=== PATIENT | male | born 1935 | race Caucasian/White ===

== ENCOUNTER 2017-10-05 09:44 | Inpatient (IN) | payer MEDICARE, OTHER ==
[2017-10-03 15:18] LABS: BASOPHILS % (AUTO) 0.4 % (0-1); EOSINOPHILS # (AUTO) 1.1 X10'3 (0-0.9); EOSINOPHILS % (AUTO) 14.2 % (0-6); LYMPHOCYTES # (AUTO) 1.5 X10'3 (1.1-4.8); LYMPHOCYTES % (AUTO) 19.4 % (21-51); MEAN CORPUSCULAR HEMOGLOBIN 30.7 PG (27.0-31.0); MEAN CORPUSCULAR HGB CONC 33.9 % (33.0-36.5); MEAN CORPUSCULAR VOLUME 90.7 FL (78-98); MEAN PLATELET VOLUME 8.7 FL (7.4-10.4); MONOCYTES # (AUTO) 0.6 X10'3 (0-0.9); MONOCYTES % (AUTO) 7.1 % (2-12); NEUTROPHILS # (AUTO) 4.7 X10'3 (1.8-7.7); NEUTROPHILS % (AUTO) 58.9 % (42-75); PRE OP HEMATOCRIT 37.6 % (42.0-52.0); PRE OP HEMOGLOBIN 12.8 g/dL (14.0-17.9); PRE OP PLATELET COUNT 202 X10'3 (140-440); RED BLOOD COUNT 4.15 X10'6 (4.70-6.10); RED CELL DISTRIBUTION WIDTH 14.7 % (11.5-14.5)
[2017-10-03 15:25] LABS: CLARITY,URINE CLEAR (Clear); COLOR,URINE YELLOW (Yellow); GLUCOSE, URINE NEGATIVE (Neg); KETONES,URINE NEGATIVE (Neg); LEUKOCYTE ESTERASE ,URINE NEGATIVE (Neg); NITRITES, URINE NEGATIVE (Neg); OCCULT BLOOD,URINE NEGATIVE (Neg); PH,URINE 5.5 (4.8-8.0); PROTEIN,URINE NEGATIVE (Neg); UROBILINOGEN,URINE 0.2 E.U/dL (0.2-1.0)
[2017-10-03 15:26] LABS: HEMOGLOBIN A1C 6.8 % (4.5-6.2)
[2017-10-03 15:31] LABS: UA COLLECTION TYPE CLN CATCH MIDSTREAM
[2017-10-03 15:32] LABS: ALBUMIN 3.5 G/DL (3.4-5.0); ALBUMIN/GLOBULIN RATIO 1.1 (1.1-1.5); ALKALINE PHOSPHATASE 75 IU/L (46-116); BLOOD UREA NITROGEN 21 MG/DL (7-18); BUN/CREATININE RATIO 18.6 (5.4-32.0); CALCIUM 8.9 MG/DL (8.5-10.1); CHLORIDE 105 MMOL/L (99-107); CREATININE 1.13 MG/DL (0.60-1.10); PRE OP ALT 26 U/L (30-65); PRE OP ANION GAP 8 (8-16); PRE OP AST 13 U/L (10-37); PRE OP BILIRUB, TOTAL 0.6 MG/DL (0.0-1.0); PRE OP GLUCOSE 119 MG/DL (70-104); PRE OP POTASSIUM 4.1 MMOL/L (3.4-5.1); PRE OP SODIUM 140 MMOL/L (135-145); TOTAL CARBON DIOXIDE 27.4 MMOL/L (24-32); TOTAL PROTEIN 6.8 G/DL (6.4-8.2); eGFR 62 ML/MIN
[~2017-10-05] VITALS: Ht 180.3 cm; Wt 88.9 kg
[2017-10-05] VITALS (16 sets, daily range): BP systolic 109–167; BP diastolic 58–71
[~2017-10-05 09:44] MED LIST: CARI250T PO; Cefazolin 2GM/50ML dext iso,osmotic IVPB IV ONE; DOXE10CA2 PO; albuterol 2.5 MG/3 ML nebule NEB ONE; ceFAZolin 1000mg inj ONE; famotidine 20mg tablet PO ONE; heparin 10,000 units/1 ML INJ ONE
[2017-10-05] MEDS: ringers solution, lacted 1,000 ML IV SCH ×2 (10:53→16:59)
[2017-10-05] MEDS ORDERED: LISI-604 PO (10:58)
[2017-10-05] MEDS ORDERED: LIDOcaine 1% (10mg/ml) 2ml vial ONE (10:58)
[2017-10-05] MEDS ORDERED: IPRA4AER IH (11:00)
[2017-10-05] MEDS ORDERED: fentaNYL/PF 50MCG/1 ML 2ML syringe ONE (12:07)
[2017-10-05] MEDS ORDERED: MIDAZolam 5mg/5ml vial ONE ×2 (12:08→14:06)
[2017-10-05] MEDS ORDERED: BUPIVAcaine/PF 7.5mg/ml (0.75%) 10ml vial ONE (12:09)
[2017-10-05] MEDS ORDERED: propofol inj 20 ML IV ONE (12:30)
[2017-10-05] MEDS ORDERED: ondansetron/PF 4mg/2ml inj IV PRN ×2 (12:40→13:15)
[2017-10-05] MEDS ORDERED: HYDROcodone/acetaminophen 5mg/325mg tablet PO PRN (12:40)
[2017-10-05] MEDS ORDERED: naloxone 0.4 mg/ml inj IV PRN (12:40)
[2017-10-05] MEDS ORDERED: CADD PCA waste documentation MC PRN (12:40)
[2017-10-05] MEDS ORDERED: enalaprilat dihydrate 2.5mg/2ml vial IV PRN (13:15)
[2017-10-05] MEDS ORDERED: proCHLORperazine 10 MG/2 ml inj IV PRN (13:15)
[2017-10-05] MEDS ORDERED: meperidine/PF 25mg/ml syringe IV PRN ×3 (13:15)
[2017-10-05] MEDS ORDERED: labetalol 20mg/4ml (5mg/ml) syringe IV PRN (13:15)
[2017-10-05] MEDS ORDERED: morphine 4 MG/ML inj SYRINge IV PRN ×2 (13:15)
[2017-10-05] MEDS ORDERED: ringers solution, lacted 1,000 ML IV SCH (13:15)
[2017-10-05] MEDS ORDERED: iohexol 300 MG/1 ML 50ml polymer ONE ×2 (13:26→14:23)
[2017-10-05] MEDS: Potassium Cl inj 20 MEQ in ringers solution, lacted 1,000 ML IV SCH ×2 (15:00→20:32)
[2017-10-05] MEDS: HYDROmorphone/NS 1 mg/ml CADD 50 ML IV SCH ×6 (15:00→23:00)
[2017-10-05] MEDS ORDERED: ondansetron/PF 4mg/2ml inj ONE (15:01)
[2017-10-05] MEDS ORDERED: dexamethasone sod phosphate 10mg/ml inj ONE (15:01)
[2017-10-05] MEDS ORDERED: neostigmine methylsulfate 1 MG/ML 10ml vial ONE (15:01)
[2017-10-05] MEDS ORDERED: glycopyrrolate 0.2mg/ml inj ONE (15:01)
[2017-10-05] MEDS ORDERED: sevoflurane 250ml liquid IH ONE (15:01)
[2017-10-05] MEDS: enoxaparin 30mg/0.3ml syringe SQ SCH (20:31)
[2017-10-05] MEDS ORDERED: cyclobenzaprine 10mg tablet PO PRN (20:35)
[2017-10-05] MEDS ORDERED: doxepin 10mg capsule PO SCH (21:00)
[2017-10-05] MEDS: ipratropium/albuterol 3ml nebule IH SCH (21:00)
[2017-10-06] VITALS: BP 129/52
[2017-10-06] MEDS: HYDROmorphone/NS 1 mg/ml CADD 50 ML IV SCH ×7 (01:00→13:00)
[2017-10-06 04:41] LABS: BASOPHILS % (AUTO) 0.3 % (0-1); EOSINOPHILS # (AUTO) 0.9 X10'3 (0-0.9); EOSINOPHILS % (AUTO) 12.4 % (0-6); HEMOGLOBIN 10.9 g/dl (14.0-17.9); LYMPHOCYTES # (AUTO) 0.9 X10'3 (1.1-4.8); LYMPHOCYTES % (AUTO) 12.4 % (21-51); MEAN CORPUSCULAR VOLUME 91.2 FL (78-98); MEAN PLATELET VOLUME 8.4 FL (7.4-10.4); MONOCYTES # (AUTO) 0.5 X10'3 (0-0.9); MONOCYTES % (AUTO) 6.7 % (2-12); NEUTROPHILS # (AUTO) 5.2 X10'3 (1.8-7.7); NEUTROPHILS % (AUTO) 68.2 % (42-75); PLATELET COUNT 174 X10'3 (140-440); RED BLOOD COUNT 3.62 X10'6 (4.70-6.10); RED CELL DISTRIBUTION WIDTH 14.5 % (11.5-14.5); WHITE BLOOD COUNT 7.6 X10'3 (4.5-11.0)
[2017-10-06 05:03] LABS: ALBUMIN 3.1 G/DL (3.4-5.0); ANION GAP 4 (8-16); BLOOD UREA NITROGEN 10 MG/DL (7-18); BUN/CREATININE RATIO 12.3 (5.4-32.0); CALCIUM 8.5 MG/DL (8.5-10.1); CHLORIDE 106 MMOL/L (99-107); CREATININE 0.81 MG/DL (0.60-1.10); GLUCOSE 115 MG/DL (70-104); POTASSIUM 4.3 MMOL/L (3.5-5.1); SODIUM 139 MMOL/L (135-145); TOTAL CARBON DIOXIDE 29.5 MMOL/L (24-32); eGFR > 90 ML/MIN
[2017-10-06] MEDS: Potassium Cl inj 20 MEQ in ringers solution, lacted 1,000 ML IV SCH (05:06)
[2017-10-06] MEDS: enoxaparin 30mg/0.3ml syringe SQ SCH (07:47)
[2017-10-06] MEDS ORDERED: lisinopril 5mg tablet PO SCH (08:00)
[2017-10-06] MEDS: ipratropium/albuterol 3ml nebule IH SCH (08:38)
[2017-10-06 11:00] VITALS: BP 115/67
== END 2017-10-06 14:36 | disposition home or self-care (01) | DRG 253 ==
LOC: PAS 09:44 → SUR 3N 12:40 → EDSTATUS 13:15
PROVIDERS: ADMIT Surgery; ATTEND Surgery
PROC: 047H3DZ Dilation of Right External Iliac Artery with Intraluminal Device, Percutaneous Approach (ICD-10-PCS; 2017-10-05)
PROC: 04CK0ZZ Extirpation of Matter from Right Femoral Artery, Open Approach (ICD-10-PCS; principal; 2017-10-05 11:53)
DX: I74.3 Embolism and thrombosis of arteries of the lower extremities (principal); I74.5 Embolism and thrombosis of iliac artery; G89.29 Other chronic pain; E11.9 Type 2 diabetes mellitus without complications; I10 Essential (primary) hypertension; Z86.73 Personal history of transient ischemic attack (TIA), and cerebral infarction without residual deficits
CPT/HCPCS: 36415; 37221; 80048; 80053; 81003; 82948; 83036; 85025; 86885; 86900; 86901; 86920; 87070; 94640; 94760; A6258; A7000; C1725; C1757; C1758; C1876; J0690; J1100; J1170; J1644; J1650; J2250; J2405; J2704; J2710; J3010; J3480; J3490; J7030; J7120; Q9967

== ENCOUNTER 2018-02-20 06:48 | Inpatient (IN) | payer MEDICARE, OTHER ==
[~2018-02-20] VITALS: Ht 180.3 cm; Wt 86.4 kg
[~2018-02-20 06:48] MED LIST changes: -Cefazolin 2GM/50ML dext iso,osmotic IVPB IV ONE; +IPRA4AER IH; +LISI-604 PO; -albuterol 2.5 MG/3 ML nebule NEB ONE; -ceFAZolin 1000mg inj ONE; -famotidine 20mg tablet PO ONE; -heparin 10,000 units/1 ML INJ ONE
[2018-02-20] MEDS ORDERED: adenosine 3mg/ml 2ml vial IV ONE ×2 (07:00→07:40)
[2018-02-20] MEDS ORDERED: aspirin 81mg tab.chew PO ONE (07:00)
[2018-02-20 07:16] LABS: BASOPHILS % (AUTO) 0.1 % (0-1); EOSINOPHILS # (AUTO) 0.1 X10'3 (0-0.9); EOSINOPHILS % (AUTO) 0.4 % (0-6); HEMATOCRIT 40.3 % (42.0-52.0); HEMOGLOBIN 13.2 g/dl (14.0-17.9); LYMPHOCYTES # (AUTO) 1.6 X10'3 (1.1-4.8); LYMPHOCYTES % (AUTO) 8.7 % (21-51); MEAN CORPUSCULAR HEMOGLOBIN 30.2 PG (27.0-31.0); MEAN CORPUSCULAR HGB CONC 32.8 % (33.0-36.5); MEAN CORPUSCULAR VOLUME 91.9 FL (78-98); MEAN PLATELET VOLUME 8.5 FL (7.4-10.4); MONOCYTES # (AUTO) 0.5 X10'3 (0-0.9); MONOCYTES % (AUTO) 2.8 % (2-12); NEUTROPHILS # (AUTO) 16.3 X10'3 (1.8-7.7); PLATELET COUNT 198 X10'3 (140-440); RED BLOOD COUNT 4.38 X10'6 (4.70-6.10); RED CELL DISTRIBUTION WIDTH 15.6 % (11.5-14.5); WHITE BLOOD COUNT 18.5 X10'3 (4.5-11.0)
[2018-02-20 07:31] LABS: ALANINE AMINOTRANSFERASE 29 U/L (12-78); ALBUMIN 2.9 G/DL (3.4-5.0); ALBUMIN/GLOBULIN RATIO 0.7 (1.1-1.5); ALKALINE PHOSPHATASE 55 IU/L (46-116); ANION GAP 15 (8-16); ASPARTATE AMINO TRANSFERASE 25 U/L (10-37); BILIRUBIN,TOTAL 2.1 MG/DL (0.1-1.0); BLOOD UREA NITROGEN 40 MG/DL (7-18); BUN/CREATININE RATIO 15.7 (5.4-32.0); CALCIUM 8.9 MG/DL (8.5-10.1); CHLORIDE 102 MMOL/L (99-107); CREATININE 2.54 MG/DL (0.60-1.10); GLUCOSE 162 MG/DL (70-104); POTASSIUM 4.7 MMOL/L (3.5-5.1); SODIUM 139 MMOL/L (135-145); TOTAL CARBON DIOXIDE 22.4 MMOL/L (24-32); TOTAL PROTEIN 6.9 G/DL (6.4-8.2); eGFR 24 ML/MIN
[2018-02-20 07:36] LABS: INR 1.3 INR; PARTIAL THROMBOPLASTIN TIME 34 SECONDS (22-32); PROTHROMBIN TIME 12.6 SECONDS (9.0-12.0)
[2018-02-20 07:38] LABS: MAGNESIUM 1.6 MG/DL (1.5-2.4)
[2018-02-20] MEDS ORDERED: levoFLOXACIN-Levaquin 750MG/D5 150 ML IV ONE (07:45)
[2018-02-20 07:53] LABS: TOTAL CELLS COUNTED 100
[2018-02-20 07:54] LABS: ANISOCYTOSIS 1+; PLATELET ESTIMATE NORMAL
[2018-02-20] MEDS ORDERED: enoxaparin 100mg/ml syringe SUBCUT ONE (07:55)
[2018-02-20 08:05] LABS: ABG HCO3 22.1 mmol/L (22.0-26.0); ABG OXYGEN SATURATION 88.6 % (95-98); ABG PCO2 (T) 35.6 mmHg (35.0-48.0); ABG PO2 (T) 53.1 mmHg (83-108); ALLEN'S TEST Positive; FCOHb 1.1 % (0.5-1.5); FLOW 5 L/min; FO2Hb 87.6 % (94-100); TOTAL HEMOGLOBIN 13.3 G/dl (14.0-18.0)
[2018-02-20] MEDS ORDERED: normal saline 1000ML IV soln IVB ONE (08:10)
[2018-02-20] MEDS ORDERED: morphine 2 MG/ML inj. syringe IV PRN ×2 (08:25)
[2018-02-20] MEDS ORDERED: ondansetron/PF 4mg/2ml inj IV PRN (08:25)
[2018-02-20] MEDS ORDERED: magnesium hydroxide 30ml (MOM) UD suspension PO PRN (08:25)
[2018-02-20] MEDS ORDERED: HYDROcodone/acetaminophen 5mg/325mg tablet PO PRN (08:25)
[2018-02-20] MEDS ORDERED: nitroGLYCERIN 0.4mg SUBLingual tab SL PRN (08:25)
[2018-02-20] MEDS ORDERED: mag hydrox/Alum hydrox/simeth 30ml oral suspension PO PRN (08:25)
[2018-02-20] MEDS ORDERED: acetaminophen 325mg tablet PO PRN ×2 (08:25)
[2018-02-20] MEDS ORDERED: HYDROcodone/acetaminophen 10/325mg tab PO PRN (08:25)
[2018-02-20] MEDS ORDERED: ATOR20TA66 PO (10:02)
[2018-02-20] MEDS ORDERED: CARI350T27 PO (13:55)
[2018-02-20 13:56] VITALS: BP 137/59
[2018-02-20] MEDS ORDERED: CefTRIAXone/D5W-Rocephin 1gm 50 ML IV ONE (14:30)
[2018-02-20] MEDS: ipratropium/albuterol 3ml nebule IH SCH ×2 (14:33→20:41)
[2018-02-20 15:00] VITALS: BP 112/54
[2018-02-20] MEDS ORDERED: azithromycin/NS 500mg/250ml 250 ML IV ONE (15:00)
[2018-02-20] MEDS ORDERED: cyclobenzaprine 10mg tablet PO PRN (16:00)
[2018-02-20] MEDS: metoprolol succinate 25mg (24-HOUR) SR. Tablet PO SCH (16:54)
[2018-02-20 19:00] VITALS: BP 118/54
[2018-02-20] MEDS: doxepin 10mg capsule PO SCH (20:29)
[2018-02-20 23:00] VITALS: BP 106/58
[2018-02-21 03:00] VITALS: BP 99/51
[2018-02-21 04:57] LABS: BASOPHILS % (AUTO) 0.1 % (0-1); EOSINOPHILS % (AUTO) 0.1 % (0-6); HEMATOCRIT 29.7 % (42.0-52.0); HEMOGLOBIN 9.8 g/dl (14.0-17.9); LYMPHOCYTES # (AUTO) 0.8 X10'3 (1.1-4.8); LYMPHOCYTES % (AUTO) 7.5 % (21-51); MEAN CORPUSCULAR HEMOGLOBIN 30.1 PG (27.0-31.0); MEAN CORPUSCULAR HGB CONC 32.9 % (33.0-36.5); MEAN CORPUSCULAR VOLUME 91.3 FL (78-98); MEAN PLATELET VOLUME 8.5 FL (7.4-10.4); MONOCYTES # (AUTO) 0.3 X10'3 (0-0.9); MONOCYTES % (AUTO) 2.7 % (2-12); NEUTROPHILS # (AUTO) 9.1 X10'3 (1.8-7.7); NEUTROPHILS % (AUTO) 89.6 % (42-75); PLATELET COUNT 151 X10'3 (140-440); RED BLOOD COUNT 3.25 X10'6 (4.70-6.10); RED CELL DISTRIBUTION WIDTH 15.6 % (11.5-14.5); WHITE BLOOD COUNT 10.2 X10'3 (4.5-11.0)
[2018-02-21 05:20] LABS: ALBUMIN 2.1 G/DL (3.4-5.0); ANION GAP 10 (8-16); BLOOD UREA NITROGEN 53 MG/DL (7-18); CALCIUM 8.3 MG/DL (8.5-10.1); CHLORIDE 101 MMOL/L (99-107); CHOL/HDL RATIO 4.6 (0.00-4.99); CHOLESTEROL 106 MG/DL (0-200); CREATININE 1.83 MG/DL (0.60-1.10); GLUCOSE 138 MG/DL (70-104); HDL CHOLESTEROL 23 MG/DL (35-60); LDL CHOLESTEROL 53 MG/DL (50-100); SODIUM 135 MMOL/L (135-145); TOTAL CARBON DIOXIDE 24.3 MMOL/L (24-32); TRIGLYCERIDES 114 MG/DL (20-135); eGFR 36 ML/MIN
[2018-02-21 06:00] VITALS: BP 99/53
[2018-02-21 07:16] LABS: ANISOCYTOSIS 1+; PLATELET ESTIMATE NORMAL; TOTAL CELLS COUNTED 100
[2018-02-21] MEDS: metoprolol succinate 25mg (24-HOUR) SR. Tablet PO SCH (07:26)
[2018-02-21] MEDS: aspirin 81mg tablet.DR PO SCH (07:27)
[2018-02-21] MEDS: atorvastatin 20mg tablet PO SCH (07:27)
[2018-02-21] MEDS: enoxaparin 40mg/0.4ml syringe SUBCUT SCH (07:27)
[2018-02-21] MEDS: CefTRIAXone/D5W-Rocephin 1gm 50 ML IV SCH (07:27)
[2018-02-21] MEDS: azithromycin/NS 500mg/250ml 250 ML IV SCH (08:33)
[2018-02-21] MEDS: ipratropium/albuterol 3ml nebule IH SCH ×2 (08:42→20:41)
[2018-02-21 11:00] VITALS: BP 96/57
[2018-02-21 15:00] VITALS: BP 111/58
[2018-02-21] MEDS ORDERED: normal saline 1000ml 1,000 ML IV SCH (15:30)
[2018-02-21 19:00] VITALS: BP 104/59
[2018-02-21] MEDS: lactobacillus rhamnosus 10,000 MMU CELLS/CAPSULE PO SCH (19:59)
[2018-02-21] MEDS: doxepin 10mg capsule PO SCH (21:00)
[2018-02-21 23:00] VITALS: BP 114/54
[2018-02-22] VITALS (7 sets, daily range): BP systolic 103–143; BP diastolic 56–83
[2018-02-22 05:12] LABS: BASOPHILS % (AUTO) 0.1 % (0-1); EOSINOPHILS # (AUTO) 0.1 X10'3 (0-0.9); EOSINOPHILS % (AUTO) 1.6 % (0-6); HEMATOCRIT 28.9 % (42.0-52.0); HEMOGLOBIN 9.5 g/dl (14.0-17.9); LYMPHOCYTES # (AUTO) 0.9 X10'3 (1.1-4.8); LYMPHOCYTES % (AUTO) 10.8 % (21-51); MEAN CORPUSCULAR HEMOGLOBIN 29.8 PG (27.0-31.0); MEAN CORPUSCULAR VOLUME 90.4 FL (78-98); MEAN PLATELET VOLUME 8.9 FL (7.4-10.4); MONOCYTES # (AUTO) 0.4 X10'3 (0-0.9); MONOCYTES % (AUTO) 4.9 % (2-12); NEUTROPHILS % (AUTO) 82.6 % (42-75); PLATELET COUNT 162 X10'3 (140-440); RED CELL DISTRIBUTION WIDTH 15.4 % (11.5-14.5); WHITE BLOOD COUNT 8.4 X10'3 (4.5-11.0)
[2018-02-22 05:28] LABS: ALBUMIN 2.1 G/DL (3.4-5.0); ANION GAP 9 (8-16); BLOOD UREA NITROGEN 34 MG/DL (7-18); BUN/CREATININE RATIO 31.8 (5.4-32.0); CALCIUM 8.6 MG/DL (8.5-10.1); CHLORIDE 103 MMOL/L (99-107); CREATININE 1.07 MG/DL (0.60-1.10); GLUCOSE 124 MG/DL (70-104); POTASSIUM 3.7 MMOL/L (3.5-5.1); SODIUM 139 MMOL/L (135-145); TOTAL CARBON DIOXIDE 27.1 MMOL/L (24-32); eGFR 66 ML/MIN
[2018-02-22] MEDS: azithromycin/NS 500mg/250ml 250 ML IV SCH (08:00)
[2018-02-22] MEDS: CefTRIAXone/D5W-Rocephin 1gm 50 ML IV SCH (08:49)
[2018-02-22] MEDS: atorvastatin 20mg tablet PO SCH (08:50)
[2018-02-22] MEDS: aspirin 81mg tablet.DR PO SCH (08:50)
[2018-02-22] MEDS: metoprolol succinate 25mg (24-HOUR) SR. Tablet PO SCH (08:50)
[2018-02-22] MEDS: lactobacillus rhamnosus 10,000 MMU CELLS/CAPSULE PO SCH ×2 (08:50→21:03)
[2018-02-22] MEDS: enoxaparin 40mg/0.4ml syringe SUBCUT SCH (08:58)
[2018-02-22] MEDS: ipratropium/albuterol 3ml nebule IH SCH ×2 (09:45→20:30)
[2018-02-22] MEDS: methylPREDNISolone sod succ/PF 40mg inj. IV SCH ×2 (15:07→21:03)
[2018-02-22] MEDS: doxepin 10mg capsule PO SCH (21:00)
[2018-02-23 02:00] VITALS: BP 117/70
[2018-02-23] MEDS: methylPREDNISolone sod succ/PF 40mg inj. IV SCH ×3 (03:06→14:00)
[2018-02-23 05:37] LABS: BASOPHILS % (AUTO) 0.1 % (0-1); EOSINOPHILS # (AUTO) 0.1 X10'3 (0-0.9); EOSINOPHILS % (AUTO) 1.1 % (0-6); HEMATOCRIT 30.4 % (42.0-52.0); LYMPHOCYTES # (AUTO) 0.3 X10'3 (1.1-4.8); LYMPHOCYTES % (AUTO) 5.3 % (21-51); MEAN CORPUSCULAR HGB CONC 32.9 % (33.0-36.5); MEAN CORPUSCULAR VOLUME 91.1 FL (78-98); MEAN PLATELET VOLUME 9.1 FL (7.4-10.4); MONOCYTES # (AUTO) 0.1 X10'3 (0-0.9); MONOCYTES % (AUTO) 1.1 % (2-12); NEUTROPHILS # (AUTO) 5.1 X10'3 (1.8-7.7); NEUTROPHILS % (AUTO) 92.4 % (42-75); PLATELET COUNT 184 X10'3 (140-440); RED BLOOD COUNT 3.34 X10'6 (4.70-6.10); RED CELL DISTRIBUTION WIDTH 15.5 % (11.5-14.5); WHITE BLOOD COUNT 5.6 X10'3 (4.5-11.0)
[2018-02-23 05:54] LABS: ALBUMIN 2.1 G/DL (3.4-5.0); ANION GAP 9 (8-16); BLOOD UREA NITROGEN 27 MG/DL (7-18); BUN/CREATININE RATIO 29.7 (5.4-32.0); CHLORIDE 102 MMOL/L (99-107); CREATININE 0.91 MG/DL (0.60-1.10); GLUCOSE 261 MG/DL (70-104); POTASSIUM 4.2 MMOL/L (3.5-5.1); SODIUM 137 MMOL/L (135-145); TOTAL CARBON DIOXIDE 26.2 MMOL/L (24-32); eGFR 80 ML/MIN
[2018-02-23 06:00] VITALS: BP 141/73
[2018-02-23] MEDS: lactobacillus rhamnosus 10,000 MMU CELLS/CAPSULE PO SCH (08:12)
[2018-02-23] MEDS: atorvastatin 20mg tablet PO SCH (08:12)
[2018-02-23] MEDS: metoprolol succinate 25mg (24-HOUR) SR. Tablet PO SCH (08:12)
[2018-02-23] MEDS: CefTRIAXone/D5W-Rocephin 1gm 50 ML IV SCH (08:12)
[2018-02-23] MEDS: aspirin 81mg tablet.DR PO SCH (08:12)
[2018-02-23] MEDS: enoxaparin 40mg/0.4ml syringe SUBCUT SCH (08:13)
[2018-02-23] MEDS: ipratropium/albuterol 3ml nebule IH SCH (08:39)
[2018-02-23] MEDS: azithromycin/NS 500mg/250ml 250 ML IV SCH (09:34)
[2018-02-23 11:00] VITALS: BP 131/62
[2018-02-23] MEDS ORDERED: METO-395 PO (11:22)
[2018-02-23] MEDS ORDERED: ASPI-1071 PO (11:22)
[2018-02-23] MEDS ORDERED: AZIT500T PO (11:22)
[2018-02-23] MEDS ORDERED: PRED10TA23 PO (11:22)
== END 2018-02-23 14:50 | disposition home or self-care (01) | DRG 871 ==
LOC: ER 06:48 → ED HOLD 08:25 → PCU 3S 13:40
PROVIDERS: ADMIT Internal Medicine; ATTEND Internal Medicine
PROC: CB121ZZ Planar Nuclear Medicine Imaging of Lungs and Bronchi using Technetium 99m (Tc-99m) (ICD-10-PCS; principal; 2018-02-20)
DX: A41.9 Sepsis, unspecified organism (principal); J18.1 Lobar pneumonia, unspecified organism; J96.01 Acute respiratory failure with hypoxia; I47.1 Supraventricular tachycardia; N17.9 Acute kidney failure, unspecified; E87.2 Acidosis; J44.1 Chronic obstructive pulmonary disease with (acute) exacerbation; J44.0 Chronic obstructive pulmonary disease with (acute) lower respiratory infection; I50.32 Chronic diastolic (congestive) heart failure; E78.5 Hyperlipidemia, unspecified; N40.0 Benign prostatic hyperplasia without lower urinary tract symptoms; G89.29 Other chronic pain; M54.9 Dorsalgia, unspecified; R74.8 Abnormal levels of other serum enzymes; E86.0 Dehydration; Z79.82 Long term (current) use of aspirin; Z79.899 Other long term (current) drug therapy; Z88.2 Allergy status to sulfonamides; Z91.041 Radiographic dye allergy status; Z91.013 Allergy to seafood; Z79.02 Long term (current) use of antithrombotics/antiplatelets; Z87.891 Personal history of nicotine dependence; Z83.3 Family history of diabetes mellitus; Z81.1 Family history of alcohol abuse and dependence
CPT/HCPCS: 36415; 36600; 71045; 78582; 80048; 80053; 80061; 82803; 82948; 83605; 83735; 83880; 84145; 84484; 85018; 85025; 85610; 85730; 87040; 87070; 93005; 93308; 93970; 94640; 94760; 96365; 96372; 96375; 96376; 97110; 97116; 97162; 97530; 99285; A9539; A9540; G0378; J0153; J0456; J0696; J1650; J1956; J2920; J7030